=== PATIENT | male | born 1980 | race Caucasian/White ===

== ENCOUNTER 2021-09-09 08:54 | Outpatient (REF) | payer OTHER, SELFPAY ==
[2021-09-09 11:54] LABS: Alanine Aminotransferase 34 U/L (0-40); Albumin Level 4.5 g/dL (3.5-5.0); Alkaline Phosphatase 51 U/L (39-117); Anion Gap 13 (12-20); Aspartate Amino Transferase 22 U/L (5-37); Bilirubin Total 0.8 mg/dL (0.0-1.0); Blood Urea Nitrogen 18 mg/dL (9-16); Carbon Dioxide 24 mmol/L (22-29); Chloride 109 mmol/L (96-108); Cholesterol 190 mg/dL; Estimated Glomerular Filt Rate > 60; Glucose Fasting 90 mg/dL (60-99); HDL Cholesterol 44 mg/dL; LDL Cholesterol Calculated 133 mg/dl; Potassium 4.4 mmol/L (3.3-5.1); Sodium 142 mmol/L (135-145); Total Protein 7.4 g/dL (6.5-8.0); Triglycerides 66 mg/dL
[2021-09-09 12:23] LABS: TSH reflex Free T4 1.14 uIU/mL (0.32-4.0)
== END 2021-09-09 08:55 | disposition home or self-care (01) ==
LOC: HO.HMGCLDS 08:54
PROVIDERS: PCP Nurse Practitioner Family; Visit Provider Nurse Practitioner Family
DX: Z00.00 Encounter for general adult medical examination without abnormal findings (principal)
CPT/HCPCS: 36415; 80053; 80061; 84443

== ENCOUNTER 2024-01-24 09:58 | Outpatient (AMB) | payer OTHER, SELFPAY ==
[2024-01-24 10:00] VITALS: BP 112/70; PULSE 99; O2SAT 96; BMI 25.0
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
== END 2024-01-24 10:58 | disposition home or self-care (01) ==
PROVIDERS: PCP Nurse Practitioner Family; Visit Provider Nurse Practitioner Family
DX: Z00.00 Encounter for general adult medical examination without abnormal findings (principal); J45.20 Mild intermittent asthma, uncomplicated

== ENCOUNTER → 2024-01-24 09:58 | Outpatient (BNVA) | payer OTHER, SELFPAY | PROVIDERS: PCP Nurse Practitioner Family; Visit Provider Nurse Practitioner Family | DX: Z00.00 Encounter for general adult medical examination without abnormal findings (principal); J45.20 Mild intermittent asthma, uncomplicated | CPT/HCPCS: 96127 ==